=== PATIENT | female | born 1950 | race Caucasian/White ===

== ENCOUNTER 2017-01-01 15:32 | Emergency (ER) | payer OTHER ==
[~2017-01-01] VITALS: Ht 160 cm; Wt 68.0 kg
[2017-01-01] MEDS ORDERED: Lidocaine 1% 10mg/ml/Epi 0.005mg/ml 30ml vial INJ ONE (16:00)
[2017-01-01] MEDS ORDERED: TYLENOL EXTRA500 MG ORAL (17:39)
[2017-01-01] MEDS ORDERED: BACITRACIN1 APPLIC TOPIC (17:40)
[2017-01-01] MEDS ORDERED: Bacitracin Oint UD TOPIC ONE (17:45)
[2017-01-01 18:24] VITALS: BP 130/80
--- NOTE | 2017-01-01 23:02 | Emergency Room Report ---
History of Present Illness General Chief Complaint: Laceration Source: Patient (CYNTHIA SHANNON) Present Illness HPI The patient is a 66-year-old female presenting for left knee laceration after [place] the [place] today. The pain is described as a 6/10 dull ache it is localized to the knee. Patient denies prior injury to the knee. She denies any numbness or tingling. The patient denies any other symptoms (CYNTHIA SHANNON) Allergies: Coded Allergies: ASPIRIN (Verified Allergy, Unknown, 01/01/17) SULFA (SULFONAMIDE ANTIBIOTICS) (Verified Allergy, Unknown, 01/01/17) Patient History Past Medical History: see triage record Immunizations: UTD Reviewed Nursing Documentation: PMH: Agreed, PSxH: Agreed (CYNTHIA SHANNON) Nursing Documentation-PMH Past Medical History: No History, Except For Hx Cardiac Problems: No - HYPOTHYROIDISM Hx Hypertension: Yes Hx Asthma: Yes (CYNTHIA SHANNON) Review of Systems All Other Systems: negative except mentioned in HPI (CYNTHIA SHANNON) Physical Exam Vital Signs Date Time Temp Pulse Resp B/P Pulse Ox O2 Delivery O2 Flow Rate FiO2 01/01/17 15:41 98.2 60 20 185/93 97 Room Air Sp02 EP Interpretation: reviewed, normal General Appearance: no apparent distress, alert, GCS 15, non-toxic Head: normocephalic, atraumatic Eyes: bilateral eye PERRL, bilateral eye normal inspection ENT: hearing grossly normal, normal pharynx, no angioedema, normal voice Neck: full range of motion, supple/symm/no masses Musculoskeletal: normal range of motion, tender - TTP over the L anterior knee and distal tib/fib Neurologic: alert, oriented x3, responsive, motor strength/tone normal, sensory intact, speech normal Psychiatric: judgement/insight normal, memory normal, mood/affect normal, no suicidal/homicidal ideation Skin: normal turgor, laceration - There is an 10cm horizontal laceration over anterior L knee Lymphatic: no adenopathy (CYNTHIA SHANNON) Procedures Splinting Splinting : Consent: Verbal Location: L knee Pre-Made Type: knee immobilizer Pre-Proc Neuro Vasc Exam: normal Post-Proc Neuro Vasc Exam: normal Complications: None (CYNTHIA SHANNON.AKolby) Laceration/Wound Repair Laceration/Wound Repair : Consent: Verbal Wound Location: lower extremity Wound's Depth, Shape: superficial, linear Wound Length (cm): 10 Wound Explored: clean Irrigated w/ Saline (ccs): 200 Betadine Prep?: Yes Anesthesia: 1% Lidocaine, Lidocaine w/ Epi Volume Anesthetic (ccs): 10 Wound Debrided: minimal Wound Repaired With: sutures Suture Size/Type: 4:0, proline Layer Closure?: No Sterile Dressing Applied?: Yes Splint Applied?: Yes Type of Splint Applied: knee immob Sling Applied?: No Patient Tolerated: Well Complications: None (CYNTHIA SHANNON.AKolby) Medical Decision Making PA Attestation Dr. Damon is my supervising physician. Patient management was discussed with my supervising physician (CYNTHIA SHANNNO) Diagnostic Impression: Primary Impression: Laceration ER Course The patient is a 66-year-old female presenting for left knee laceration Ddx considered include but not limited to fracture, tendon/ligament injury, avulsion, nerve damage PE: NAD There is an 10cm horizontal laceration over anterior L knee. No bleeding. Full AROM. SILT TTP over distal tib/fib. No obvious deformity. The wound was irrigated with normal saline and cleaned with betadine. A 27g needle was used to administer 10 mL of lidocaine w. epi for local anaesthesia. 8 sutures were placed with 4-0 prolene. The wound was well approximated and the patient tolerated the procedure well. The wound was then cleaned and bacitracin was applied. Pt placed in L knee immobilizer and provided crutches. Sutures will need to be removed in 7 days. Pt will be DC'ed home with a prescription for tylenol and bacitracin. ER precautions given (CYNTHIA SHANNON) ER Course Scribe documentation reviewed by me and is accurate. (Gerald Damon M.D.) Other X-Ray Diagnostic Results Other X-Ray Diagnostic Results #1: X-Ray Ordered: L knee Date: Jan 01, 2017 EP Interpretation: Yes Findings: no fractures, no dislocation, no soft tissue swelling Number of Views: 3 PA Scribe Text I am acting as scribe for my supervising physician. My supervising physician's interpretation of the L knee xrays are there are no fractures, dislocations or soft tissue swelling. Other X-Ray Diagnostic Results #2: X-Ray Ordered: L tib/fib Date: Jan 01, 2017 EP Interpretation: Yes Findings: no fractures, no dislocation, no soft tissue swelling Number of Views: 2 PA Scribe Text I am acting as scribe for my supervising physician. My supervising physician's interpretation of the L tib/fib xrays are there are no fractures, dislocations or soft tissue swelling. (CYNTHIA SHANNON) Last Vital Signs Date Time Temp Pulse Resp B/P Pulse Ox O2 Delivery O2 Flow Rate FiO2 01/01/17 18:24 98.0 82 18 130/80 98 Room Air Status: improved (CYNTHIA SHANNON) Disposition: HOME, SELF-CARE Condition: Improved Scripts Bacitracin (Bacitracin Zinc) 15 Gm Oint...g. 1 APPLIC TOPIC TID, #15 GM Prov: CYNTHIA SHANNON 01/01/17 Acetaminophen* (TYLENOL EXTRA STRENGTH*) 500 Mg Tablet 500 MG ORAL Q8H Y for Prn Headache/Temp > 101, #30 TAB 0 Refills Prov: CYNTHIA SHANNON 01/01/17 Patient Instructions: Laceration Care, Adult Additional Instructions: I discussed my findings with the patient. All questions and concerns have been answered. Treatment and medication compliance have been addressed. I advised the patient that they need to follow up with PMD in 7 days for wound check and suture removal. If you are unable to see PMD, return to the ED in 7 days. Return to ED if pain remains or worsens, you notice discharge from the wound, the wound continues to bleed, the suture/s fall out, you notice a fever or chills, or for any reason. Patient is advised to keep the wound clean and apply an antibacterial ointment. Patient verbalized understanding of discharge instructions. CYNTHIA SHANNON Jan 01, 2017 23:02 Gerald Damon M.D. Jan 03, 2017 02:22
--- NOTE | 2017-01-02 08:36 | Diagnostic Imaging Report ---
Indication: PAIN Technique: 2 views of the tibia and fibula Comparison: none Findings: Extensive phleboliths are seen throughout the anterior soft tissues. Unusual densities are seen in the anterior knee region. Uncertain as to whether internal or external to the patient. No acute fractures. No dislocations. Small exostosis is seen coming off of the anterior medial tibia. Impression: No definite acute process. Findings as noted
--- NOTE | 2017-01-02 08:36 | Diagnostic Imaging Report ---
Indication: Left knee pain Technique: 3 views of the left knee Comparison: None Findings:Bones are somewhat osteosclerotic. Unusual process densities are seen in the anterior knee. Uncertain as to whether these are within the soft tissues or external to the patient. No acute fractures. No dislocations. Joint spaces are preserved. There are extensive phleboliths in the proximal leg soft tissues Impression:No acute bony trauma Unusual calcific densities in the anterior soft tissues versus external to the patient. Correlate with clinical history and findings. Diffuse mild osteosclerosis. Correlate with any history of systemic disease
== END 2017-01-01 18:42 | disposition home or self-care (01) ==
LOC: EMR 17:23
DX: S81.012A Laceration without foreign body, left knee, initial encounter (principal); I10 Essential (primary) hypertension; E03.9 Hypothyroidism, unspecified; J45.909 Unspecified asthma, uncomplicated; Z88.6 Allergy status to analgesic agent; Z88.2 Allergy status to sulfonamides; W18.30XA Fall on same level, unspecified, initial encounter; Y92.251 Museum as the place of occurrence of the external cause; Y99.8 Other external cause status
CPT/HCPCS: 29530